=== PATIENT | female | born 1975 | race Asian ===

== ENCOUNTER 2017-04-09 23:55 | Inpatient (IN) | payer OTHER ==
[~2017-04-09] VITALS: Ht 167.6 cm; Wt 68.2 kg
[2017-04-10] VITALS (19 sets, daily range): BP systolic 99–115; BP diastolic 58–73; PULSE 67–80; TEMP 36.5–36.9; O2SAT 96–99; Ht 167.6 cm; Wt 68.2 kg
[2017-04-10] MEDS ORDERED: CEFAZOLIN IV 2,000 MG in DEXTROSE 5% 50ML 50 ML IV STA (00:56)
[2017-04-10] MEDS ORDERED: CITRIC ACID/SODIUM CITRATE 15 ML UDC PO STA (00:56)
[2017-04-10 01:16] LABS: BASO % 0.3 %; BASO ABS # 0.04 K/uL (0-0.2); COMPLETE YES; EOS % 1.1 %; HEMATOCRIT 33.3 % (37-47); IG% 0.7 %; LYMPH % 19.7 %; MEAN CELL VOLUME 86.3 fL (80-100); MEAN CORPUSCULAR HEMOGLOBIN 27.5 pg (25-34); MEAN CORPUSCULAR HGB CONC 31.8 g/dl (32-36); MEAN PLATELET VOLUME 12.3 fL (7.4-10.4); MONO % 6.9 %; NEUT % 71.3 %; PLATELET COUNT 133 K/uL (130-400); RED BLOOD COUNT 3.86 M/uL (4.2-5.4)
[2017-04-10] MEDS: LACTATED RINGER'S 1000ML 1,000 ML IV SCH ×2 (01:17→20:05)
[2017-04-10] MEDS ORDERED: FENTANYL CITRATE INJ 50 MCG/1 ML 2 ML VIAL ONE (01:29)
[2017-04-10] MEDS ORDERED: MoRPHine SULFATE PF 1 MG/ML 10 ML AMP/VIAL ONE (01:30)
[2017-04-10] MEDS ORDERED: OXYTOCIN INJ 10 UNITS/ML VIAL ONE (01:32)
[2017-04-10] MEDS ORDERED: PHENYLEPHRINE 100MCG/ML 5ML SYR ONE (01:58)
[2017-04-10] MEDS ORDERED: LACTATED RINGER'S 1000ML 1,000 ML IV SCH (02:37)
[2017-04-10] MEDS ORDERED: OXYTOCIN INJ 20 UNITS in LACTATED RINGER'S 1000ML 1,000 ML IV SCH (02:37)
[2017-04-10] MEDS ORDERED: NALOXONE HCL INJ 0.08 MG in SYRINGE 1.8 ML IV PRN (02:38)
[2017-04-10] MEDS ORDERED: SODIUM CHLORIDE 0.9% 1000ML 1,000 ML IV PRN (02:38)
[2017-04-10] MEDS ORDERED: LACTATED RINGER'S 1000ML 500 ML IV PRN (02:38)
[2017-04-10] MEDS ORDERED: NALOXONE HCL INJ 1 MG in SODIUM CHLORIDE 0.9% 1000ML 1,000 ML IV PRN ×4 (02:38)
[2017-04-10] MEDS ORDERED: SUPERCREAM 0.870 % 15GM JAR EXT PRN (02:45)
[2017-04-10] MEDS ORDERED: NALBUPHINE HCL INJ 10 MG/ML AMP IV PRN (02:45)
[2017-04-10] MEDS ORDERED: DIPHTHERIA/TETANUS/PERTUSSIS 0.5 ML SYR/VIAL IM. ONE (02:45)
[2017-04-10] MEDS ORDERED: DC INTRASPINAL MORPHINE SCH (02:45)
[2017-04-10] MEDS ORDERED: PROMETHAZINE HCL INJ 25 MG in SODIUM CHLORIDE 0.9% 50ML 50 ML IV PRN (02:45)
[2017-04-10] MEDS ORDERED: SENNA 8.6 MG TAB PO PRN (02:45)
[2017-04-10] MEDS ORDERED: HYDROCORTISONE ACETATE 25 MG SUPP PR PRN (02:45)
[2017-04-10] MEDS ORDERED: MAGNESIUM HYDROXIDE SUSP 30 ML UDC PO PRN (02:45)
[2017-04-10] MEDS ORDERED: DiphenhydrAMINE HCL 50 MG/ML VIAL IV PRN ×2 (02:45→21:45)
[2017-04-10] MEDS ORDERED: NALOXONE HCL 0.4 MG/1 ML VIAL/CARP IV PRN (02:45)
[2017-04-10] MEDS ORDERED: KETOROLAC TROMETHAMINE 30 MG/ML VIAL IV. PRN ×2 (02:45→21:45)
[2017-04-10] MEDS ORDERED: NO NARCOTICS OR SEDATIVES SCH (02:45)
[2017-04-10] MEDS ORDERED: LANOLIN OINT EXT PRN ×2 (02:45)
[2017-04-10] MEDS ORDERED: ONDANSETRON INJ 2 MG/ML 2 ML VIAL IV PRN ×2 (02:45→21:45)
[2017-04-10] MEDS ORDERED: MEASLES, MUMPS & RUBELLA VIRUS VIAL SQ. ONE (02:45)
[2017-04-10] MEDS ORDERED: BENZOCAINE 20% AER SPR 82.5 GM CAN EXT PRN (02:45)
[2017-04-10] MEDS ORDERED: EpHEDrine SULFATE INJ 50 MG/ML AMP IV PRN (02:45)
[2017-04-10] MEDS ORDERED: MoRPHine SULFATE PF 1 MG/ML 10 ML AMP/VIAL EPI PRN (02:45)
--- NOTE | 2017-04-10 02:45 | Anesthesiology Progress Note ---
Anesthesia Post Op Note Date & Time Apr 10, 2017 at 02:44 Notes Mental Status: alert / awake / arousable, participated in evaluation Pt Amnestic to Procedure: No Nausea / Vomiting: adequately controlled Pain: adequately controlled Airway Patency, RR, SpO2: stable & adequate BP & HR: stable & adequate Hydration State: stable & adequate Neuraxial Anesthesia: was administered, sensory block is resolving Anesthetic Complications: no major complications apparent
--- NOTE | 2017-04-10 02:45 | [facility] Post Operative Brief Note ---
Immediate Operative Summary Operative Date Apr 10, 2017. Pre-Operative Diagnosis ELECTIVE REPEAT CAESAREAN SECTION IN LABOR Post-Operative Diagnosis SAME POST OPERATIVE Procedure(s) Performed REPEAT CAESAREAN SECTION LOWER TRANSVERSE UTERINE INCISION Surgeon Dr. Nash Braille Teacher Surgeon(s) Hubert Echavarria RN Estimated Blood Loss 700ML Findings live male direct OP Apgars 8/9 weight 7-13.5 Fluids (cc crystalloids) LR 1300 ml Specimens 1. [facility] @ 2. PLACENTA- EXAMINE 3. CORD BLOOD Drains blanchard urine 300 Anesthesia spinal Complication(s) None Disposition L&D
--- NOTE | 2017-04-10 04:52 | HISTORY & PHYSICAL EXAMINATION ---
DATE OF ADMISSION: 04/10/2017 REASON FOR ADMISSION: Term in labor with a repeat , planned. HISTORY OF PRESENT ILLNESS: The patient is a 42-year-old female para 2-0-0-2, at 39 weeks and 3 days, admitted in active labor. The patient is 5-6 cm and is planning for a repeat . The patient was identified and she was scheduled this Monday, tomorrow and went in to active labor. PAST SURGICAL HISTORY: Positive for x2. PAST MEDICAL HISTORY: Noncontributory. SOCIAL HISTORY: Denies smoking, alcohol or drug use. ALLERGIES: No known allergies. MEDICATIONS: vitamins. REVIEW OF SYSTEMS: Negative. FAMILY HISTORY: Noncontributory. PHYSICAL EXAMINATION: HEENT: Within normal limits. LUNGS: Clear to auscultation. CARDIOVASCULAR: Regular rate and rhythm. ABDOMEN: Soft, gravid. heart tone category 1. EXTREMITIES: Within normal limits. NEUROLOGICALLY: Intact. GBS is negative. ASSESSMENT: Repeat section in labor. PLAN: Elective repeat section emergently.
--- NOTE | 2017-04-10 05:00 | OPERATIVE REPORT ---
DATE OF ADMISSION: 04/10/2017 PREOPERATIVE DIAGNOSIS: Elective repeat section in labor. POSTOPERATIVE DIAGNOSIS: Same. PROCEDURE: Repeat section, low segment transverse. SURGEON: Dr. Nash. RAW STOCK DRIER TENDER: ____, RN. ANESTHESIA: Spinal. FLUIDS: 1300 mL. EBL: 700 mL URINE OUTPUT: 300 mL. CLINICAL HISTORY: The patient is a 42-year-old female para 2-0-1-2 at 39 weeks and 3 days, admitted in active labor. The patient was 6 cm upon presentation to labor room. She was consented for a and a time-out was called prior to the start of the procedure and Ancef 2 grams were given. DESCRIPTION OF PROCEDURE: After satisfactory spinal anesthesia, the patient was prepped and draped in usual sterile fashion. A low Pfannenstiel incision through a prior scar was then made, entering into the abdominal cavity in successive layers without difficulty. Upon entering into the peritoneal cavity, the bladder flap was dissected down with sharp dissection. There were some adhesions on the uterus that already noted, the incision was made, the amniotic sac was nicked. The fluid was found to be thick meconium. The incision was widened in the AP diameter. The infant was found to be in the direct OP position with a cord presenting on the side of the head. The was delivered without incident with the aid of fundal pressure. Cord was doubly clamped and cut. Baby handed to bobbin fixer. Live male. Apgars 8 and 9, weight 7 pounds 13-1/2 ounces. Cord blood was obtained. Placenta delivered spontaneously and intact. Uterus was then exteriorized. Ring forceps were then placed on both angles in the inferior margin. The uterus was closed in double layer closure with 0 Vicryl suture in a continuous interlocking fashion followed by a second imbricating layer of 0 Vicryl suture. Tubes, ovaries bilaterally were found to be within normal limits. The contents of the pelvic cavity were then irrigated to clear. The initial sponge, needle and instrument count were found to be correct. The uterus was placed back into the normal anatomical position. Lower uterine segment was once more looked at, no active bleeding was noted. The fascia was then reapproximated with 0 Vicryl suture in a continuous fashion from both sides. The subcutaneous layer was irrigated. Bleeders were cauterized. The skin was then reapproximated with brandon. Clear urine was noted from the [place]. Estimated blood loss was 700 mL. The final sponge, needle and instrument count were found to be correct. The patient was then placed supine on a stretcher and taken to recovery room in stable condition.
[2017-04-10] MEDS ORDERED: CEFAZOLIN IV 2,000 MG in DEXTROSE 5% 50ML 50 ML IV SCH (06:00)
[2017-04-10] MEDS: DOCUSATE SODIUM 100 MG CAP PO SCH ×2 (10:45→20:00)
[2017-04-10] MEDS: SIMETHICONE 80 MG CHEW PO SCH ×4 (10:45→20:00)
[2017-04-10] MEDS: FERROUS SULFATE 325 MG TAB PO SCH (10:46)
[2017-04-10] MEDS: PRENATAL VITAMIN TAB PO SCH (16:25)
[2017-04-10] MEDS ORDERED: MEPERIDINE HCL 50 MG/ML CARP IV PRN ×2 (21:45)
[2017-04-10] MEDS ORDERED: OXYCODONE/ACETAMINOPHEN 5-325 TAB PO PRN (21:45)
[2017-04-11 07:09] LABS: BASO % 0.2 %; BASO ABS # 0.03 K/uL (0-0.2); EOS % 0.3 %; HEMATOCRIT 26.1 % (37-47); IG% 0.4 %; LYMPH % 10.6 %; LYMPH ABS # 1.42 K/uL (1.2-3.4); MEAN CORPUSCULAR HGB CONC 31.8 g/dl (32-36); MEAN PLATELET VOLUME 11.4 fL (7.4-10.4); MONO % 6.4 %; NEUT % 82.1 %; PLATELET COUNT 144 K/uL (130-400); RED BLOOD COUNT 3.07 M/uL (4.2-5.4); WHITE BLOOD COUNT 13.34 K/uL (4.8-10.8)
[2017-04-11 07:30] VITALS: O2SAT 95
[2017-04-11 07:49] LABS: COMPLETE YES
[2017-04-11 07:51] VITALS: BP 100/61; PULSE 69; TEMP 36.9
[2017-04-11] MEDS: SIMETHICONE 80 MG CHEW PO SCH ×4 (08:41→19:57)
[2017-04-11] MEDS: FERROUS SULFATE 325 MG TAB PO SCH (08:41)
[2017-04-11] MEDS: DOCUSATE SODIUM 100 MG CAP PO SCH ×2 (08:41→19:57)
[2017-04-11] MEDS: PRENATAL VITAMIN TAB PO SCH (08:42)
--- NOTE | 2017-04-11 10:35 | Surgery Progress Note ---
Surgery Progress Note Date of Service Apr 11, 2017. Subjective Post OP Day: 1 + feeling well, + ambulating, + flatus, + pain controlled, + diet (Tolerating PO ) Objective Vital Signs: Date Time Temp Pulse Resp B/P (MAP) Pulse Ox O2 Delivery O2 Flow Rate FiO2 04/11/17 07:51 36.9 69 18 100/61 04/11/17 07:30 95 Room Air 04/10/17 23:05 96 Room Air 04/10/17 23:05 36.5 70 18 99/58 (72) 96 Room Air 04/10/17 21:50 18 97 04/10/17 21:00 16 98 04/10/17 20:00 36.9 74 16 113/69 (84) 97 Room Air 04/10/17 20:00 16 97 04/10/17 20:00 97 Room Air 04/10/17 19:00 16 97 04/10/17 18:00 18 98 04/10/17 17:00 16 98 04/10/17 16:00 18 96 04/10/17 15:30 Room Air 04/10/17 15:30 36.9 76 16 101/64 (76) 98 Room Air 04/10/17 15:00 16 98 04/10/17 14:00 16 96 04/10/17 13:00 18 98 04/10/17 12:00 36.6 67 18 115/73 (87) 97 Room Air 04/10/17 12:00 18 97 04/10/17 11:00 18 98 General Appearance: WD/WN, no apparent distress Head: normocephalic, atraumatic Neck: supple, no adenopathy, thyroid normal, no JVD, no carotid bruits, trachea midline Respiratory/Chest: chest non-tender, lungs clear, normal breath sounds, no respiratory distress, no accessory muscle use Cardiovascular: regular rate, rhythm, no edema, no gallop, no JVD, no murmur Abdomen: normal bowel sounds, non tender, non distended, soft, no organomegaly , no pulsatile mass Incision(s): clean, dry, intact, no erythema, no drainage Extremities: normal range of motion, non-tender, normal inspection, no pedal edema, no calf tenderness, normal capillary refill, pelvis stable Laboratory Results: Results Past 24 Hours Test 04/11/17 06:40 Range/Units White Blood Count 13.34 4.8-10.8 K/uL Red Blood Count 3.07 4.2-5.4 M/uL Hemoglobin 8.3 12.0-16.0 g/dL Hematocrit 26.1 37-47 % Mean Corpuscular Volume 85.0 80-100 fL Mean Corpuscular Hemoglobin 27.0 25-34 pg Mean Corpuscular Hemoglobin Concent 31.8 32-36 g/dl Platelet Count 144 130-400 K/uL Mean Platelet Volume 11.4 7.4-10.4 fL Neutrophils (%) (Auto) 82.1 % Lymphocytes (%) (Auto) 10.6 % Monocytes (%) (Auto) 6.4 % Eosinophils (%) (Auto) 0.3 % Basophils (%) (Auto) 0.2 % Neutrophils # (Auto) 10.95 1.4-6.5 K/uL Lymphocytes # (Auto) 1.42 1.2-3.4 K/uL Monocytes # (Auto) 0.85 0.11-0.59 K/uL Eosinophils # (Auto) 0.04 0-0.5 K/uL Basophils # (Auto) 0.03 0-0.2 K/uL RDW Standard Deviation 43.5 36.4-46.3 fL RDW Coefficient of Variation 14.0 11.5-14.5 % Immature Granulocyte % (Auto) 0.4 % Immature Granulocyte # (Auto) 0.05 0.00-0.02 K/uL Nucleated RBC Absolute Count (auto) 0.02 0-0 K/uL Nucleated Red Blood Cells % 0.1 % Red Blood Cell Morphology Unremarkable Assessment & Plan c/sec day 1 pt doing well continue day #1 care Post op anemia. No tachycardia. will monitor pt for now
[2017-04-11] MEDS: IBUPROFEN 600 MG TAB PO PRN ×2 (11:05→18:13)
[2017-04-11] MEDS: OXYCODONE/ACETAMINOPHEN 5-325 TAB PO PRN ×2 (11:06→18:13)
[2017-04-11 12:23] LABS: HEMATOCRIT 25.6 % (37-47)
[2017-04-11 13:35] VITALS: BP 101/62; PULSE 84; TEMP 36.6
[2017-04-11 15:45] VITALS: BP 110/68; PULSE 76; TEMP 36.7; O2SAT 97
[2017-04-11] MEDS ORDERED: BISACODYL 5 MG TABEC PO ONE (22:00)
[2017-04-12 00:30] VITALS: BP 101/61; PULSE 71; TEMP 36.6
[2017-04-12 07:45] VITALS: BP 124/77; PULSE 80; TEMP 36.4; O2SAT 98
[2017-04-12 08:00] VITALS: BP 114/74; PULSE 80; TEMP 36.6
[2017-04-12] MEDS: PRENATAL VITAMIN TAB PO SCH (08:23)
[2017-04-12] MEDS: FERROUS SULFATE 325 MG TAB PO SCH (08:23)
[2017-04-12] MEDS: SIMETHICONE 80 MG CHEW PO SCH ×3 (08:23→20:01)
[2017-04-12] MEDS: DOCUSATE SODIUM 100 MG CAP PO SCH ×2 (08:23→20:01)
--- NOTE | 2017-04-12 09:12 | OB/GYN Progress Note ---
CALENDER INSPECTOR Progress Note Date of Service Apr 12, 2017. Subjective conversation w/ patient, physical exam Ambulation: ambulating normally Voiding: no voiding problems Passing Gas: Yes Diet Tolerance: Regular Diet Lochia: Small Pain: /10 Notes: Doing well. Pain is well controlled. Tolerating regular diet. Ambulating without difficulty. Incision is c/d/i. Objective Vital Signs Date Time Temp Pulse Resp B/P (MAP) Pulse Ox O2 Delivery O2 Flow Rate FiO2 04/12/17 08:00 36.6 80 18 114/74 (87) Room Air 04/12/17 07:45 98 Room Air 04/12/17 07:45 36.4 80 16 124/77 04/12/17 00:46 Room Air 04/12/17 00:30 36.6 71 18 101/61 04/11/17 15:45 97 Room Air 04/11/17 15:45 36.7 76 16 110/68 04/11/17 13:35 36.6 84 18 101/62 Physical Exam General Appearance: WELL-APPEARING Respiratory/Chest: chest non-tender, lungs clear Cardiovascular: regular rate, rhythm Abdomen: normal bowel sounds, soft Fundus: Firm Incision Description: Clean, Dry & Intact Extremities: normal range of motion, non-tender, no calf tenderness Laboratory Results Last 24 Hours Test 04/11/17 12:05 Hemoglobin 8.4 g/dL Hematocrit 25.6 % Assessment and Plan Post-Op Day Number: 2 Continue Routine Care: -Anemia, Hgb stable at 8.4 this morning, asymptomatic, continue to monitor. -Incision c/d/i -Continue routine postop care -Anticipate d/c home tomorrow AM
[2017-04-12] MEDS ORDERED: INFLUENZA ADMINISTRATION CHARGE ONE (14:00)
[2017-04-12] MEDS ORDERED: INFLUENZA VIRUS QUAD VACCINE 0.5 ML SYR IM. ONE (14:00)
[2017-04-12 15:30] VITALS: BP 117/75; PULSE 91; TEMP 36.6; O2SAT 98
[2017-04-12] MEDS: IBUPROFEN 600 MG TAB PO PRN (15:31)
[2017-04-12] MEDS: OXYCODONE/ACETAMINOPHEN 5-325 TAB PO PRN (15:32)
[2017-04-12 16:00] VITALS: BP 118/72; PULSE 94; TEMP 36.8
[2017-04-12 23:00] VITALS: BP 110/70; PULSE 74; TEMP 36.6; O2SAT 97
[2017-04-13] MEDS: DOCUSATE SODIUM 100 MG CAP PO SCH (08:21)
[2017-04-13] MEDS: FERROUS SULFATE 325 MG TAB PO SCH (08:21)
[2017-04-13] MEDS: SIMETHICONE 80 MG CHEW PO SCH (08:21)
[2017-04-13] MEDS: PRENATAL VITAMIN TAB PO SCH (08:21)
[2017-04-13 08:30] VITALS: BP 119/76; PULSE 79; TEMP 36.5; O2SAT 99
--- NOTE | 2017-04-13 09:59 | OB/GYN Progress Note ---
KNOWLEDGE ANALYST Progress Note Date of Service: Apr 13, 2017. Patient is seen and examined. She feels well, no complaints. Pain is under control with oral meds. Ambulating without dizziness Voiding without difficulty Tolerating regular diet with out N&V Flatus + BM + Bleeding is minimal No fever/ chills/ CP/ SOB/ N&V/ Leg pain Breast feeding without problems Date Time Temp Pulse Resp B/P (MAP) Pulse Ox O2 Delivery O2 Flow Rate FiO2 04/13/17 08:30 99 Room Air 04/13/17 08:30 36.5 79 16 119/76 (90) 99 Room Air 04/12/17 23:00 36.6 74 16 110/70 (83) 97 Room Air 04/12/17 23:00 97 Room Air 04/12/17 16:00 36.8 94 18 118/72 (87) Room Air 04/12/17 15:30 36.6 91 18 117/75 (89) 98 Room Air 04/12/17 15:30 98 Room Air Test 04/03/17 09:05 04/10/17 01:00 04/11/17 06:40 04/11/17 12:05 White Blood Count 8.68 11.70 H 13.34 H Red Blood Count 3.84 L 3.86 L 3.07 L Hemoglobin 10.5 L 10.6 L 8.3 L 8.4 L Hematocrit 33.4 L 33.3 L 26.1 L 25.6 L Mean Corpuscular Volume 87.0 86.3 85.0 Mean Corpuscular Hemoglobin 27.3 27.5 27.0 Mean Corpuscular Hemoglobin Concent 31.4 L 31.8 L 31.8 L Platelet Count 123 L 133 144 Mean Platelet Volume 12.7 H 12.3 H 11.4 H Neutrophils (%) (Auto) 66.1 71.3 82.1 Lymphocytes (%) (Auto) 22.6 19.7 10.6 Monocytes (%) (Auto) 9.1 6.9 6.4 Eosinophils (%) (Auto) 1.2 1.1 0.3 Basophils (%) (Auto) 0.5 0.3 0.2 Neutrophils # (Auto) 5.75 8.34 H 10.95 H Lymphocytes # (Auto) 1.96 2.30 1.42 Monocytes # (Auto) 0.79 H 0.81 H 0.85 H Eosinophils # (Auto) 0.10 0.13 0.04 Basophils # (Auto) 0.04 0.04 0.03 RDW Standard Deviation 43.1 43.3 43.5 RDW Coefficient of Variation 13.5 13.8 14.0 Immature Granulocyte % (Auto) 0.5 0.7 0.4 Immature Granulocyte # (Auto) 0.04 H 0.08 H 0.05 H Platelet Estimate NORMAL Giant Platelets 1+ Nucleated RBC Absolute Count (auto) 0.02 H Nucleated Red Blood Cells % 0.1 Red Blood Cell Morphology Unremarkable PE: General: Alert, orientedx3, NAD CVS: S1S2 RRR Lungs; CTAB Abd: soft, NT, fundus firm, below Umbilicus Incision: Nolan,Clean, dry, intact Perineum intact, Lochia rubra minimal Ext; NT, no edema AP: 42 yo s/p C Section, pod# 3 VSS Afebrile doing well Continue routine postop care Encourage ambulation, PO intake All questions were answered Instructions were given when to call D/C home , f/u in office
[2017-04-13] MEDS ORDERED: MTR600X PO (10:01)
[2017-04-13] MEDS ORDERED: OXYC-57 PO (10:01)
[2017-04-13] MEDS ORDERED: PRENTAB26 PO (10:01)
[2017-04-13] MEDS ORDERED: FRRS300 PO (10:01)
[2017-04-13] MEDS ORDERED: CLC100 PO (10:01)
--- NOTE | 2017-04-13 10:02 | Discharge Instructions ---
Discharge Instructions Date of Service Apr 13, 2017. Admission Reason for Admission: LABOR Discharge Discharge Diagnosis / Problem: Repeat Csection Discharge Goals Goal(s): Routine recovery after Activity Recommendations Activity Limitations: as noted below Lifting Limitations: no more than 10 pounds Exercise/Sports Limitations: until after follow-up appointment May Resume Sexual Activity: after follow-up appointment Shower/Bathe: keep incision dry Driving or Machine Use: ACTIVITY RECOMMENDATIONS: * Gradual return to full activity over the next 2-3 weeks. * No lifting - nothing heavier than baby over the next 2-3 weeks. * Do not engage in vigorous exercise, sexual activity or sports until cleared by your physician. * Do not drive or operate any motorized equipment until cleared by your physician. * You may shower/bathe daily. BREAST CARE: If you are not breast feeding: * Wear a supportive bra 24 hours a day for one to two weeks. * Avoid stimulating your breasts and nipples as much as possible during the first few weeks after delivery. * When taking a shower, have the warm water hit your back, not breasts. * When your breasts feel full, apply ice packs. Usually three to four times a day helps ease the discomfort. * Take a mild pain medication (Tylenol/Motrin) when you are uncomfortable. If breast feeding: * Use breast milk to lubricate nipples. Lansinoh cream may be used for sore nipples. You do not need to remove cream prior to breast feeding. If using a different brand of cream, check the label for directions regarding removal of cream prior to nursing. * Wear a supportive bra. * If having problems with breasts or breast feeding, call a specialty development consultant or your health care provider. OVER THE COUNTER MEDICATION: * For discomfort or pain, you may use Acetaminophen (Tylenol), Ibuprofen (Advil ), or Naproxen (Aleve) following the package directions. * For constipation you may use Colace following the package directions. SPECIAL CARE INSTRUCTIONS: When you are discharged from the hospital, it is important for you to follow the instructions listed below: * During the first week at home, you should be able to care for yourself and your baby. In addition, the usual light household activities are encouraged. * Limit your activities to the way you feel. Do not try to clean the house or move furniture. Be sensible. * If you actively engage in sports and have done so up until the time of your delivery, you may resume these activities as soon as you feel able. This may take up to one month or even longer. Use good judgment. * Continue to take your vitamins for at least six weeks after the of your baby. * Your diet need not be limited unless you were on a special diet before your delivery. Breast-feeding mothers need around 2500 calories per day and at least 64-80 ounces of fluid per day (8 to 10 glasses). * You should eat foods from the four major food groups. Crash diets or fad diets are to be avoided. Eating lean meats, fresh fruits and vegetables, low-fat dairy products, high fiber foods and a regular exercise program, will help you get back to your pre- weight without putting your health at risk. * Constipation is sometimes a problem after delivery. Take a mild laxative as needed. If breast feeding, Milk of Magnesia is acceptable to use. You may use a suppository or Fleets enema if no episiotomy. * A daily shower or tub bath is suggested. Be sure to thoroughly and gently dry the perineum. * A bloody vaginal discharge will usually continue until around four weeks post . A small amount of bleeding may continue for as long as six weeks. Vaginal discharge changes from the bright red bleeding after delivery to pink then brownish and finally yellowish-pink before becoming white and disappearing. * Bleeding may increase with activity. Your first period may come in 4-8 weeks. If you are breast feeding, your period may be delayed even longer. * [place] (sex) can begin whenever both you and your partner feel comfortable and do not have any form of genital infection. It is recommended that you wait at least six weeks for internal and external healing to occur. If you have questions, please talk to your health care practitioner. A condom should be used to prevent infection and . * Foreplay, gentle intercourse and lubrication is very important the first several times to prevent pain. A water-based lubricant such as K-Y jelly or Astroglide may be used. * Tampons and/or Douching should be avoided until after six weeks check-up. * If you have RH negative blood and your baby is RH positive, you will receive RHOGAM by injection prior to discharge. The nurse will give you a card to keep with you that has the date and place that you received RHOGAM after delivery. * During your care, you had a Rubella screen done to check for the presence of rubella antibodies in your blood. If your test was negative, you will receive a Rubella vaccine prior to discharge. This vaccine may cause a fever, soreness at the injection site and flu-like symptoms. If these symptoms persist, notify your health care practitioner. is not advised for three months after a Rubella vaccine. * Verbalizes understanding of car seat law as reviewed with patient nursing. * Car Seat hand-out given and reviewed with patient by nursing. * Shaken baby information reviewed with patient by nursing. Call you doctor if: * Heavy bleeding (saturating several pads an hour) or passing clots the size of your fist. * A fever >101 degrees F (38.3 degrees C) on two occasions four hours apart and /or chills. * Unusual pain in the pelvic or vaginal areas. Pain should improve each day . * Call the doctor for any increased redness, drainage or swelling around the incision and any pain unrelieved by prescribed pain medication. * Any signs or symptoms of phlebitis (possible blood clots forming in the veins ): leg pain, warm, red or swollen area on leg. * "Baby Blues" lasting longer than two weeks. If you have any questions or concerns, call your health care practitioner at . FOLLOW-UP VISIT: * Incision check (staple removal) in 1 week. Please call doctor's office at to set up appointment. * Please call the office at to schedule a 6 week examination. It is important you keep this appointment. * It is important for you to make arrangements for either yearly or twice yearly check-ups thereafter. . Current Hospital Diet Patient's current hospital diet: Regular OB Diet Discharge Diet Recommended Diet: Regular Diet Procedures Procedures Performed: REPEAT CAESAREAN SECTION LOWER TRANSVERSE UTERINE INCISION Pending Studies Studies pending at discharge: no Medical Emergencies . Who to Call and When: Medical Emergencies: If at any time you feel your situation is an emergency, please call 911 immediately. . Non-Emergent Contact Non-Emergency issues call your: Surgeon Call Non-Emergent contact if: temperature is above 100.5, your pain is not controlled, your pain is worsening . . "Provider Documentation" section prepared by Sean Akers. . VTE Core Measure Inpt VTE Proph given/why not?: Treatment not indicated
[2017-04-13 14:02] VITALS: BP_DIAS 76; PULSE 79; TEMP 36.5
[2017-04-13] MEDS ORDERED: FERROUS SULFATE 325 MG TAB PO SCH (20:00)
--- NOTE | 2017-04-19 10:15 | DISCHARGE SUMMARY ---
REASON FOR ADMISSION: Term in labor with scheduled repeat section. HOSPITAL COURSE AND REASON FOR ADMISSION: The patient is a 42-year-old female para 2-0-1-2 at 39 weeks and 3 days, admitted in active labor. She has a repeat scheduled later in the week. She was 6 cm upon admission. The patient did not want . Delivery was accomplished with an elective repeat section under spinal anesthesia, delivering a live male. Apgars were 8 and 9. weight was 7 pounds 13.5 ounces. Hospital course was unremarkable. The patient was discharged home in stable condition. Home going instructions were given. Regular diet on discharge. Medications on discharge include Motrin and oxycodone. Followup will be in the office in 1 week for an incision check. FINAL DISCHARGE DIAGNOSIS: Term , delivered by elective repeat section.
== END 2017-04-13 14:25 | disposition home or self-care (01) | DRG 766 ==
LOC: C.LD 23:55 → C.OPB 23:55 → C.LD 04-10 00:49 → C.OPB 04-10 00:49 → C.OBG 04-10 05:59
PROVIDERS: ADMIT Obstetrics & Gynecology; ATTEND Obstetrics & Gynecology
PROC: 10D00Z1 Extraction of Products of Conception, Low, Open Approach (ICD-10-PCS; principal; 2017-04-10 01:14)
DX: O34.211 Maternal care for low transverse scar from previous cesarean delivery (principal); O69.81X0 Labor and delivery complicated by cord around neck, without compression, not applicable or unspecified; O90.81 Anemia of the puerperium; Z3A.39 39 weeks gestation of pregnancy; Z37.0 Single live birth